=== PATIENT | female | born 2005 | race Caucasian/White ===

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

== ENCOUNTER 2023-11-07 14:37 | Emergency (ER) | payer MEDICAID ==
[~2023-11-07] VITALS: Ht 165.1 cm; Wt 62.6 kg
[2023-11-07 16:29] VITALS: BP 114/71; PULSE 74; RESP 16; TEMP 98; O2SAT 100
== END 2023-11-07 17:04 | disposition home or self-care (01) ==
LOC: ER 14:37
DX: R09.A2 Foreign body sensation, throat (principal); R07.0 Pain in throat; W22.8XXA Striking against or struck by other objects, initial encounter; Y93.89 Activity, other specified; Y92.89 Other specified places as the place of occurrence of the external cause; Y99.8 Other external cause status
CPT/HCPCS: 70360